=== PATIENT | male | born 1990 | race Caucasian/White ===

== ENCOUNTER 2017-09-24 18:13 | Emergency (ER) | payer MEDICAID, OTHER ==
--- NOTE | 2017-09-24 19:08 | EDM.PDOC ---
ED HPI GENERAL MEDICAL PROBLEM - General Chief Complaint: Genitourinary Problem Stated Complaint: BLOOD WORK TO CHECK FOR STDS Time Seen by Provider: 09/24/17 19:07 Source of Information: Reports: Patient History Limitations: Reports: No Limitations - History of Present Illness INITIAL COMMENTS - FREE TEXT/NARRATIVE: Through the urethra off and on for the last 2 months. States he was off and on on again with his girlfriend who turned out to be a heroin addict and is been with multiple other sexual partners. He reports that she gave him one of her antibiotics presumably doxycycline because she is chlamydia positive. He has no fever chills or backache. Noted discharge per urethra on his under shorts. No blood in the urine noted. No history of prostatitis to his knowledge. He is concerned about possible HIV and hepatitis C due to interaction with this female. Onset: Other (symptoms off and on for the last 2 months. ) Duration: Week(s):, Intermittent, Waxing/Waning Location: Reports: Other (dysuria. ) Quality: Reports: Other Severity: Moderate (Dysuria with burning on voiding.) Improves with: Reports: None Worsens with: Reports: None Context: Reports: Other (Possibly sexually transmitted disease.). 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: Other (see below) (None.) - Related Data Allergies Allergy/AdvReac Type Severity Reaction Status Date / Time No Known Allergies Allergy Verified 09/24/17 18:32 Home Meds: Home Meds Ciprofloxacin HCl [Cipro] 500 mg PO BID #84 tablet 09/24/17 [Rx] Past Medical History - Past Health History Medical/Surgical History: Denies Medical/Surgical History Genitourinary History: Reports: STD Social & Family History - Tobacco Use Smoking Status *Q: Current Every Day Smoker Years of Tobacco use: 20 Packs/Tins Daily: 1 - Caffeine Use Caffeine Use: Reports: None - Recreational Drug Use Recreational Drug Use: Yes Drug Use in Last 12 Months: Yes Recreational Drug Type: Reports: Marijuana/Hashish Recreational Drug Use Frequency: Socially - Living Situation & Occupation Living situation: Reports: Single Occupation: Employed ED ROS GENERAL - Review of Systems Review Of Systems: See Below Constitutional: Denies: Fever, Chills, Malaise, Weakness, Fatigue, Decreased Appetite, Weight Loss HEENT: Reports: No Symptoms Respiratory: Reports: No Symptoms Cardiovascular: Reports: No Symptoms Endocrine: Reports: No Symptoms GI/Abdominal: Reports: No Symptoms : Reports: Dysuria, Frequency, Urgency. Denies: Discharge, Flank Pain, Hematuria, Incontinence, Irregular Menses, Pain, Urinary Retention Musculoskeletal: Reports: No Symptoms. Denies: Back Pain Skin: Reports: No Symptoms Neurological: Reports: No Symptoms Psychiatric: Reports: No Symptoms Hematologic/Lymphatic: Reports: No Symptoms ED EXAM, RENAL/ - Physical Exam Exam: See Below Exam Limited By: No Limitations General Appearance: Alert, WD/WN, Anxious, Mild Distress Eye Exam: Bilateral Eye: Normal Inspection Throat/Mouth: Normal Inspection, Normal Lips, Normal Oropharynx Head: Atraumatic, Normocephalic Neck: Normal Inspection, Non-Tender, Full Range of Motion. No: Lymphadenopathy (L), Lymphadenopathy (R) Respiratory/Chest: No Respiratory Distress, Lungs Clear, Normal Breath Sounds, No Accessory Muscle Use Cardiovascular: Normal Peripheral Pulses, Regular Rate, Rhythm, No Edema, No Murmur GI/Abdominal: Normal Bowel Sounds, Soft, Non-Tender, No Organomegaly, No Distention, No Abnormal Bruit, No Mass, Pelvis Stable, Other (Multiple shotty lymphadenopathy in both inguinal areas. No signs of pathology.) (Male) Exam: No Hernia, Circumcised, Other (Urethra and urethral meatus is normal.) Back Exam: Normal Inspection, Full Range of Motion. No: CVA Tenderness (L) Extremities: Normal Inspection, Normal Range of Motion, Non-Tender, No Pedal Edema Psychiatric: Normal Affect, Normal Mood Skin Exam: Warm, Dry, Intact, Normal Color, No Rash Course - Vital Signs Last Recorded V/S: Last Vital Signs Temp 37.2 C 09/24/17 18:29 Pulse 95 09/24/17 18:29 Resp 16 09/24/17 18:29 BP 157/107 H 09/24/17 18:29 Pulse Ox 98 09/24/17 18:29 - Orders/Labs/Meds Labs: Laboratory Tests 09/24/17 09/24/17 09/24/17 Range/Units 19:15 19:15 19:25 Urine Color Yellow (Yellow) Urine Appearance Clear (Clear) Urine pH 7.0 (5.0-8.0) Ur Specific [place] 1.025 (1.005-1.030) Urine Protein Negative (Negative) Urine Glucose (UA) Negative (Negative) Urine Ketones Negative (Negative) Urine Occult Blood Negative (Negative) Urine Nitrite Negative (Negative) Urine Bilirubin Negative (Negative) Urine Urobilinogen 1.0 (0.2-1.0) Ur Leukocyte Esterase Negative (Negative) Urine RBC 0-5 (0-5) /hpf Urine WBC 0-5 (0-5) /hpf Ur Epithelial Cells 0-5 (0-5) /hpf Amorphous Sediment Few H (NOT SEEN) /hpf Urine Bacteria Not seen (FEW) /hpf Urine Mucus Not seen (FEW) /hpf Hepatitis C Antibody Negative (NEGATIVE) HIV-1 Ab Rapid Screen Negative (NEGATIVE) C trachomatis DNA (PCR) Not detected N gonorrhoeae DNA (PCR) Not detected - Radiology Interpretation Free Text/Narrative:: 27-year-old male attends the ED with concerns about possible sexually transmitted disease after finding out that his on again off again girlfriend is a heroin addict and admits to being with multiple sexual partners several months. He reports intermittent dysuria urgency and frequency for the last 2 months. Just a prostatitis. He has no discharge. Urethra. No fever no chills. No rectal or perineal discomfort. He is concerned about possible chlamydia and gonorrhea. Therefore this will be checked for also HIV and hep site C status will be obtained since his girlfriend is a intravenous drug user. - Re-Assessments/Exams Free Text/Narrative Re-Assessment/Exam: 09/24/17 20:31 HIV screen and hepatitis C screen are both negative. Still awaiting the urine analysis for GC and chlamydia. 09/24/17 21:34 urine PCR testing for gonorrhea and chlamydia were both negative. Will therefore be treated for prostatitis with Cipro 500 mg twice daily for the next 6 weeks. Patient advised he must finish all of his medications to try to eradicate this difficult infection. Otherwise symptoms are likely to recur and are much more difficult to treat. Departure - Departure Time of Disposition: 20:47 Disposition: Home, Self-Care 01 Condition: Fair Clinical Impression: Prostatitis - Discharge Information Prescriptions: Ciprofloxacin HCl [Cipro] 500 mg PO BID #84 tablet Instructions: Prostatitis Referrals: PCP,None [Primary Care Provider] - Forms: ED Department Discharge Additional Instructions: Evaluation the emergency room today due to intermittent burning with voiding off and on for the last 2 months. Surgeons for potential sexually transmitted disease voiced and investigated while in the ED. Tests for HIV and hepatitis C were negative. Remaining been exposed to these viruses. The urine test negative for any signs of infection and also tested negative for chlamydia and/or gonorrhea. Therefore your symptoms suggest that you have a prostate gland infection which can be caused from multiple organisms. Wai tract sexually transmitted. Human is antibiotic Cipro 500 mg twice daily for the next 6 weeks to fully eradicate prostate gland infection as it's difficult to get antibiotic to penetrate into the gland. Expect gradual improvement in the dysuria urgency and urinary tract symptoms over the next 7-10 days. Please complete all of the antibiotics otherwise the prostate gland infection is more prone to coming back and is more difficult to treat with antibiotics. May also take Motrin 600 mg every 6 hours to reduce inflammation if needed.
[2017-09-24 21:19] LABS: C. TRACHOMATIS BY PCR NOT DETECTED; N. GONORRHOEAE BY PCR NOT DETECTED
== END 2017-09-24 21:00 | disposition home or self-care (01) ==
LOC: JD.ED 18:13
DX: N41.9 Inflammatory disease of prostate, unspecified (principal); F17.210 Nicotine dependence, cigarettes, uncomplicated
CPT/HCPCS: 36415; 81001; 86803; 87491; 87591; 99283; G0433

== ENCOUNTER 2017-12-12 08:22 | Emergency (ER) | payer SELFPAY ==
[2017-12-12] MEDS ORDERED: Amoxicillin 500 MG Cap PO ONE (08:44)
[2017-12-12] MEDS ORDERED: Acetaminophen 325 MG Tab PO ONE (08:50)
--- NOTE | 2017-12-12 08:50 | EDM.PDOC ---
ED HPI GENERAL MEDICAL PROBLEM - General Chief Complaint: ENT Problem Stated Complaint: EAR PAIN Time Seen by Provider: 12/12/17 08:35 Source of Information: Reports: Patient, RN Notes Reviewed - History of Present Illness INITIAL COMMENTS - FREE TEXT/NARRATIVE: Onset of L ear pain during the night, has not been ill otherwise, no fever or chills, no drainage. Unable to sleep since 2 AM. Left Ear Pain Score (Numeric/FACES): 8 - Related Data Allergies Allergy/AdvReac Type Severity Reaction Status Date / Time No Known Allergies Allergy Verified 09/24/17 18:32 Home Meds: Home Meds Hydrocodone/Acetaminophen [[place] 5-325 Tablet] 1 each PO Q6HR PRN #10 tablet [Rx] Hydrocort/Neomycin/Polymyxin B [Cxvdtkds-Dcbenptuy-DC Otic Susp] 10 ml .XX Q6HR #1 bottle 12/12/17 [Rx] Past Medical History - Past Health History Medical/Surgical History: Denies Medical/Surgical History Genitourinary History: Reports: STD Social & Family History - Family History Family Medical History: Noncontributory - Tobacco Use Smoking Status *Q: Current Every Day Smoker Years of Tobacco use: 20 Packs/Tins Daily: 0.5 - Caffeine Use Caffeine Use: Reports: Coffee - Recreational Drug Use Recreational Drug Use: No Drug Use in Last 12 Months: Yes Recreational Drug Type: Reports: Marijuana/Hashish Recreational Drug Use Frequency: Socially - Living Situation & Occupation Living situation: Reports: Single Occupation: Employed ED ROS ENT - Review of Systems Review Of Systems: See Below Constitutional: Denies: Fever, Chills HEENT: Reports: Ear Pain. Denies: Ear Discharge, Rhinitis, Sinus Problem, Throat Pain, Vertigo Respiratory: Denies: Shortness of Breath Cardiovascular: Denies: Chest Pain GI/Abdominal: Denies: Abdominal Pain, Nausea, Vomiting Musculoskeletal: Denies: Neck Pain Skin: Reports: No Symptoms Neurological: Reports: No Symptoms ED EXAM, ENT - Physical Exam Exam: See Below General Appearance: Alert, Mild Distress Ears: Auricular Tenderness (moderate L), Canal Swelling (L, mild), TM Erythema. No: Auricular Erythema, Mastoid Tenderness Nose: Normal Inspection Mouth/Throat: Normal Inspection Head: Atraumatic. No: Facial Swelling, Facial Tenderness Neck: Supple, Full Range of Motion. No: Lymphadenopathy (L), Lymphadenopathy (R ) Respiratory/Chest: No Respiratory Distress, Lungs Clear Cardiovascular: Regular Rate, Rhythm Neurological: Alert, Oriented Skin: Warm, Dry, Normal Color Course - Vital Signs Last Recorded V/S: Last Vital Signs Temp 98.4 F 12/12/17 08:28 Pulse 84 12/12/17 08:28 Resp 16 12/12/17 08:28 BP 138/86 12/12/17 08:28 Pulse Ox 96 12/12/17 08:28 - Orders/Labs/Meds Meds: Medications Discontinued Medications Generic Name Dose Route Start Last Admin Trade Name Freq PRN Reason Stop Dose Admin Acetaminophen 975 mg 12/12/17 08:50 12/12/17 08:54 Tylenol PO 12/12/17 08:51 975 mg NOW ONE Administration Amoxicillin 1,000 mg 12/12/17 08:44 12/12/17 08:50 Amoxil PO 12/12/17 08:45 1,000 mg ONETIME ONE Administration Departure - Departure Time of Disposition: 08:46 Disposition: Home, Self-Care 01 Condition: Fair Clinical Impression: Otitis media Qualifiers: Otitis media type: unspecified Chronicity: acute Qualified Code(s): H66.90 - Otitis media, unspecified, unspecified ear - Discharge Information Prescriptions: Hydrocodone/Acetaminophen [[place] 5-325 Tablet] 1 each PO Q6HR PRN #10 tablet PRN Reason: Pain Hydrocort/Neomycin/Polymyxin B [Lvszukci-Xctmzesve-KS Otic Susp] 10 ml .XX Q6HR #1 bottle Referrals: PCP,None [Primary Care Provider] - Forms: ED Department Discharge Additional Instructions: amoxacillin 1000 mg, two 500 mg capsules twice daily for 1 week, advil or ibuprofen 600 mg 3 times daily for pain as needed, you may take tylenol in addition in between doses for extra pain relief or hydrocodone if needed for severe pain not relieved by tylenol and ibuprofen. cortisporin otic susp 2 drops 4 times daily. Follow up clinic if not much better within 3 to 5 days as expected. Call [phone] if needed for appointment.
== END 2017-12-12 09:13 | disposition home or self-care (01) ==
LOC: JD.ED 08:22
DX: H66.92 Otitis media, unspecified, left ear (principal); F17.210 Nicotine dependence, cigarettes, uncomplicated
CPT/HCPCS: 99282; A9270; 99283

== ENCOUNTER 2021-04-21 14:43 | Emergency (ER) | payer SELFPAY ==
[2021-04-21] MEDS ORDERED: Diphtheria,Pertussis(Acell),Tetanus Vaccine 0.5 ML Syringe IM ONE (15:06)
[2021-04-21] MEDS ORDERED: Lidocaine 1% with EPINEPHrine 1:100,000 10 ML MDV INJECT ONE (15:06)
--- NOTE | 2021-04-21 15:16 | EDM.PDOC ---
ED HPI GENERAL MEDICAL PROBLEM - General Chief Complaint: Laceration Stated Complaint: LT POINTER FINGER LAC Time Seen by Provider: 04/21/21 15:01 Source of Information: Reports: Patient, RN Notes Reviewed History Limitations: Reports: No Limitations - History of Present Illness INITIAL COMMENTS - FREE TEXT/NARRATIVE: Patient is a 30-year-old male who presents to the ER for a left index finger laceration. Patient notes he was slicing some meat, when the knife glanced off the meat, and then ended up lacerating the posterior aspect of the patient's left index finger. This is close to the PIP joint. This is a skin flap type laceration, and roughly 5 cm in length. Bleeding is controlled at this time, he has no neurological or loss of strength/tendinous injury apparent. Patient denies any other sick-like symptoms, fever/chills, cough/shortness of breath, nausea/vomiting/diarrhea. Notes that his last tetanus booster was in high school. Left Finger-Index Pain Score (Numeric/FACES): 8 - Related Data Allergies Allergy/AdvReac Type Severity Reaction Status Date / Time No Known Allergies Allergy Verified 04/21/21 15:00 Home Meds: Home Meds . [No Known Home Meds] 04/21/21 [History] Past Medical History - Past Health History Medical/Surgical History: Denies Medical/Surgical History Genitourinary History: Reports: STD Social & Family History - Family History Family Medical History: No Pertinent Family History - Tobacco Use Tobacco Use Status *Q: Current Every Day Tobacco User Years of Tobacco use: 15 Packs/Tins Daily: 1 - Caffeine Use Caffeine Use: Reports: Coffee - Recreational Drug Use Recreational Drug Use: No - Living Situation & Occupation Living situation: Reports: Single Occupation: Employed ED ROS GENERAL - Review of Systems Review Of Systems: Comprehensive ROS is negative, except as noted in HPI. ED EXAM, SKIN/RASH Exam: See Below Exam Limited By: No Limitations General Appearance: Alert, WD/WN, No Apparent Distress Respiratory/Chest: No Respiratory Distress, Lungs Clear, Normal Breath Sounds, No Accessory Muscle Use, Chest Non-Tender Cardiovascular: Normal Peripheral Pulses, Regular Rate, Rhythm, No Edema Peripheral Pulses: 2+: Radial (L), Radial (R) Extremities: Normal Range of Motion, Normal Capillary Refill Neurological: Alert, Oriented, Normal Cognition, No Motor/Sensory Deficits Psychiatric: Normal Affect, Normal Mood Skin: Warm, Dry, Normal Color, No Rash, Wound/Incision (5cm curvilinear laceration to posterior aspect of Left index finger near PIP) ED SKIN PROCEDURES - Laceration/Wound Repair Left Middle Posterior Digit - 2nd (Index) Appearance: Superficial, Irregular (skin flap type laceration), Clean Distal NVT: Neuro & Vascular Intact, No Tendon Injury Anesthetic Type: Local Local Anesthesia - Lidocaine (Xylocaine): 1% with EPI Local Anesthetic Volume: 5cc Skin Prep: Chlorhexidine (Hibiciens), Saline Exploration/Debridement/Repair: Wound Explored, In a Bloodless Field, Explored to Base, No Foreign Material Found Closed with: Sutures Lac/Wound length In cm: 5 Suture Size: 4-0 # of Sutures: 6 Suture Type: Prolene, Interrupted, Simple Sterile Dressing Applied: Nurse Tetanus Status Addressed: Yes (updated at today's visit) Complications: No Course - Vital Signs Last Recorded V/S: Last Vital Signs Temp 97.5 F 04/21/21 14:57 Pulse 110 H 04/21/21 14:57 Resp 16 04/21/21 14:57 BP 148/85 H 04/21/21 14:57 Pulse Ox 95 04/21/21 14:57 - Orders/Labs/Meds Orders: Active Orders 24 hr Category Date Time Status Vaccines to be Administered [RC] PER UNIT ROUTINE Care 04/21/21 15:06 Ordered Meds: Medications Discontinued Medications Generic Name Dose Route Start Last Admin Trade Name Freq PRN Reason Stop Dose Admin Diphtheria/Tetanus/Acell Pertussis 0.5 ml 04/21/21 15:06 04/21/21 15:13 Diphtheria,Pertussis(Acell),Tetanus Vaccine 0.5 Ml Syringe IM 04/21/21 15:07 0.5 ml .ONCE ONE Administration Lidocaine/Epinephrine 10 ml 04/21/21 15:06 04/21/21 15:16 Lidocaine 1% With Epinephrine 1:100,000 10 Ml Mdv INJECT 04/21/21 15:07 10 ml ONETIME ONE Administration Departure - Departure Time of Disposition: 15:15 Disposition: Home, Self-Care 01 Condition: Good Clinical Impression: Finger laceration Qualifiers: Encounter type: initial encounter Finger: index finger Damage to nail status: without damage Foreign body presence: without foreign body Laterality: left Qualified Code(s): S61.211A - Laceration without foreign body of left index finger without damage to nail, initial encounter - Discharge Information *PRESCRIPTION DRUG MONITORING PROGRAM REVIEWED*: No *COPY OF PRESCRIPTION DRUG MONITORING REPORT IN PATIENT TEODORA: No Instructions: Sutures, [place], or Adhesive Wound Closure, [id number] Referrals: PCP,None [Primary Care Provider] - Forms: ED Department Discharge, ED Return to Work/School Form Additional Instructions: You have been evaluated in the ED for your laceration. Sutures will need to stay in for 10 to 14 days. You may return to the ED or any clinic for removal. Please keep this area clean and dry, you may cleanse with regular soap and water. No vigorous scrubbing. Please try to avoid submerging the affected area in water for prolonged periods of time until the sutures are removed. Watch out for signs of infection like increased redness, swelling, pain at the laceration site, or if you should develop any fevers or chills. Please return to ED if your symptoms change or worsen. Sepsis Event Note (ED) - Evaluation Sepsis Screening Result: No Definite Risk - Focused Exam Vital Signs: Vital Signs Temp Pulse Resp BP Pulse Ox 04/21/21 14:57 97.5 F 110 H 16 148/85 H 95 - My Orders Last 24 Hours: My Active Orders 04/21/21 15:06 Vaccines to be Administered [RC] PER UNIT ROUTINE - Assessment/Plan Last 24 Hours: My Active Orders 04/21/21 15:06 Vaccines to be Administered [RC] PER UNIT ROUTINE
== END 2021-04-21 16:15 | disposition home or self-care (01) ==
LOC: JD.ED 14:43
DX: S61.211A Laceration without foreign body of left index finger without damage to nail, initial encounter (principal); Z23 Encounter for immunization; Z72.0 Tobacco use; W26.0XXA Contact with knife, initial encounter
CPT/HCPCS: 12002; 90471; 90715; 99282; 99282-25

== ENCOUNTER 2021-05-04 14:37 | Emergency (ER) | payer SELFPAY | END 2021-05-04 14:44 | disposition home or self-care (01) | LOC: JD.ED 14:37 | DX: S61.211D Laceration without foreign body of left index finger without damage to nail, subsequent encounter (principal); X58.XXXD Exposure to other specified factors, subsequent encounter | CPT/HCPCS: 99281 ==